=== PATIENT | male | born 1950 | race African-American/Black ===

== ENCOUNTER 2020-06-13 19:17 | Inpatient (IN) | payer MEDICARE, OTHER ==
[~2020-06-13] VITALS: Ht 189.2 cm; Wt 126.1 kg
[2020-06-13] MEDS ORDERED: NITROGLYCERIN 0.4 MG/TAB BOTTLE SL ONE (20:30)
[2020-06-13] MEDS ORDERED: FUROSEMIDE 40 MG/4 ML VIAL IV ONE (20:30)
[2020-06-13 21:02] LABS: BASOPHILS % (AUTO) 0.7 % (0.0-2.0); HEMATOCRIT 28 % (39-51); HEMOGLOBIN 8.7 g/dL (13.5-17.5); LYMPHOCYTES # (AUTO) 0.3 /CMM (0.8-4.8); LYMPHOCYTES % (AUTO) 7.7 % (20.0-44.0); MEAN CORPUSCULAR HGB CONC 31 g/dl (31.0-36.0); MEAN CORPUSCULAR VOLUME 73 fL (80-96); MONOCYTES # (AUTO) 0.4 /CMM (0.1-1.30); MONOCYTES % (AUTO) 8.9 % (2.0-12.0); NEUTROPHILS # (AUTO) 3.4 /CMM (1.8-8.9); NEUTROPHILS % (AUTO) 80.7 % (43.0-81.0); PLATELET COUNT (AUTO) 250 /CMM (150-450); RED BLOOD CELL COUNT(AUTO) 3.84 MIL/uL (4.5-6.0); WHITE BLOOD COUNT (AUTO) 4.2 K/uL (4.3-11.0)
[2020-06-13 21:34] LABS: LYMPHOCYTES % (MANUAL) 7 % (16-48); MONOCYTES % (MANUAL) 6 % (0-11.0); NEUTROPHILS % (MANUAL) 87 (42-76)
[2020-06-13 21:35] LABS: CARBON DIOXIDE 36 mmol/L (21-32); CHLORIDE 105 mmol/L (98-107); GLUCOSE 101 mg/dL (74-106); POTASSIUM 3.7 mmol/L (3.5-5.1); SODIUM SERUM 143 mmol/L (136-145); UREA NITROGEN, BLOOD 13 mg/dL (7-18)
[2020-06-13] MEDS ORDERED: FUROSEMIDE 40 MG/4 ML VIAL ONE (21:43)
[2020-06-13] MEDS ORDERED: NITROGLYCERIN 0.4 MG/TAB BOTTLE ONE (21:43)
[2020-06-13 21:48] LABS: ALANINE AMINOTRANSFERASE 11 U/L (12-78); ALBUMIN 3.2 g/dL (3.4-5.0); ALKALINE PHOSPHATASE 89 U/L (46-116); ASPARTATE AMINOTRANSFERASE 14 U/L (15-37); B-TYPE NATRIURETIC PEPTIDE 2031 PG/ML (0-125); BILIRUBIN,DIRECT 0.5 mg/dL (0.0-0.2); BILIRUBIN,TOTAL 0.9 mg/dL (0.2-1.0); TOTAL PROTEIN, SERUM 8.3 g/dL (6.4-8.2)
[2020-06-13] MEDS ORDERED: HYDROCODONE/APAP 5/325MG TABLET PO PRN (23:30)
[2020-06-13] MEDS ORDERED: ENOXAPARIN SODIUM 40 MG/0.4 ML DISP.SYRIN SQ SCH (23:30)
[2020-06-13] MEDS ORDERED: ACETAMINOPHEN 325 MG TABLET PO PRN (23:30)
[2020-06-13] MEDS ORDERED: ONDANSETRON HCL/PF 4 MG/2 ML VIAL IVP PRN (23:30)
[2020-06-13] MEDS ORDERED: Z GUARD REMEDY 2 OZ OINT TP PRN (23:30)
[2020-06-13] MEDS ORDERED: MAGNESIUM HYDROXIDE 30 ML UDC PO PRN (23:30)
[2020-06-13] MEDS ORDERED: MAG HYDROX/AL HYDROX/SIMETH 30 ML UDC PO PRN (23:30)
[2020-06-13] MEDS ORDERED: ZOLPIDEM TARTRATE 5 MG TABLET PO PRN (23:30)
[2020-06-13 23:47] LABS: BILIRUBIN,URINE NEGATIVE (NEGATIVE); COLOR,URINE YELLOW (YELLOW); LEUKOCYTE ESTERASE ,URINE NEGATIVE (NEGATIVE); NITRITE, URINE NEGATIVE (NEGATIVE); PROTEIN,URINE NEGATIVE (NEGATIVE); UGLUCOSE NEGATIVE (NEGATIVE); UROBILINOGEN,URINE 0.2 EU/dL (0.2)
[2020-06-13 23:50] VITALS: BP 153/94
[2020-06-14 03:32] LABS: BASOPHILS % (AUTO) 0.8 % (0.0-2.0); HEMATOCRIT 28 % (39-51); HEMOGLOBIN 8.7 g/dL (13.5-17.5); LYMPHOCYTES # (AUTO) 0.4 /CMM (0.8-4.8); LYMPHOCYTES % (AUTO) 11.2 % (20.0-44.0); MEAN CORPUSCULAR HGB CONC 31 g/dl (31.0-36.0); MEAN CORPUSCULAR VOLUME 73 fL (80-96); MONOCYTES # (AUTO) 0.3 /CMM (0.1-1.30); MONOCYTES % (AUTO) 8.5 % (2.0-12.0); NEUTROPHILS # (AUTO) 2.8 /CMM (1.8-8.9); NEUTROPHILS % (AUTO) 77.5 % (43.0-81.0); PLATELET COUNT (AUTO) 233 /CMM (150-450); RED BLOOD CELL COUNT(AUTO) 3.85 MIL/uL (4.5-6.0); WHITE BLOOD COUNT (AUTO) 3.7 K/uL (4.3-11.0)
[2020-06-14 03:43] LABS: CREATININE 1.1 mg/dL (0.6-1.3); MAGNESIUM 1.8 mg/dL (1.8-2.4); PHOSPHORUS 3.9 mg/dL (2.5-4.9)
[2020-06-14 04:00] VITALS: BP 162/103
[2020-06-14] MEDS ORDERED: FURO-144 PO (07:24)
[2020-06-14] MEDS ORDERED: APIX5TAB PO (07:24)
[2020-06-14] MEDS ORDERED: CARV12.52 PO (07:24)
[2020-06-14] MEDS ORDERED: HYDR-4077 PO (07:24)
[2020-06-14] MEDS ORDERED: HYDR-4209 PO (07:24)
[2020-06-14] MEDS ORDERED: BENA40TA8 PO (07:24)
[2020-06-14 08:00] VITALS: BP 150/90
[2020-06-14] MEDS: PANTOPRAZOLE 40 MG TABLET.DR PO SCH (08:31)
[2020-06-14] MEDS: NICOTINE PATCH (21MG) 21 MG PATCH.TD24 TD SCH (08:45)
[2020-06-14] MEDS ORDERED: HYDROCODONE/APAP 5/325MG TABLET PO PRN (09:00)
[2020-06-14] MEDS ORDERED: FUROSEMIDE 40 MG/4 ML VIAL IV SCH (09:00)
[2020-06-14] MEDS: IPRATROPIUM NEB FS 0.5 MG/2.5 ML AMPUL.NEB NEB SCH ×5 (09:30→23:45)
[2020-06-14] MEDS: ALBUTEROL HALF STRENGTH 1.25 MG/3 ML VIAL.NEB NEB SCH ×5 (09:30→23:45)
[2020-06-14 10:07] LABS: THYROID STIMULATING HORMONE 2.942 uIU/mL (0.358-3.74)
[2020-06-14] MEDS: POTASSIUM CHLORIDE 20 MEQ TAB.PRT.SR PO SCH ×3 (10:09→11:31)
[2020-06-14] MEDS: BENAZEPRIL HCL 20 MG TABLET PO SCH (10:09)
[2020-06-14] MEDS: APIXABAN 5 MG TABLET PO SCH ×2 (10:09→16:25)
[2020-06-14] MEDS: FUROSEMIDE 100 MG/10 ML VIAL IV SCH ×3 (10:10→16:23)
[2020-06-14] MEDS: CARVEDILOL 12.5 MG TABLET PO SCH ×2 (10:10→16:26)
[2020-06-14] MEDS: hydrALAZINE HCL 50 MG TABLET PO SCH ×3 (10:10→16:26)
[2020-06-14] MEDS: methylPREDNISolone SOD SUCC 40 MG/ML VIAL IV SCH (10:13)
[2020-06-14 10:25] LABS: ABG BASE EXCESS 4.9 mmol/L; ABG OXYGEN SATURATION 98.9 % (92.0-98.5); ABG PCO2 53.3 mmHg (35.0-45.0); ABG PO2 144.5 mmHg (75.0-100.0); AaDO2 50.4 mmHg; COHb 2.9 % (0.5-1.5); MetHb 0.2 % (0.0-1.5); O2Hb 95.8 % (94.0-97.0); SITE, ABG Right Radial; VENT MODE, BG 4L NC
[2020-06-14 16:00] VITALS: BP 150/110
[2020-06-14 20:49] VITALS: BP 134/84
[2020-06-15] MEDS: IPRATROPIUM NEB FS 0.5 MG/2.5 ML AMPUL.NEB NEB SCH ×6 (03:58→23:59)
[2020-06-15] MEDS: ALBUTEROL HALF STRENGTH 1.25 MG/3 ML VIAL.NEB NEB SCH ×6 (03:58→23:59)
[2020-06-15 07:30] LABS: BASOPHILS # (AUTO) 0.1 /CMM (0.0-0.2); BASOPHILS % (AUTO) 1.2 % (0.0-2.0); EOSINOPHILS % (AUTO) 0.4 % (0.0-6.0); HEMATOCRIT 29 % (39-51); LYMPHOCYTES # (AUTO) 0.4 /CMM (0.8-4.8); LYMPHOCYTES % (AUTO) 8.9 % (20.0-44.0); MEAN CORPUSCULAR HGB CONC 31 g/dl (31.0-36.0); MEAN CORPUSCULAR VOLUME 73 fL (80-96); MONOCYTES # (AUTO) 0.4 /CMM (0.1-1.30); MONOCYTES % (AUTO) 8.1 % (2.0-12.0); NEUTROPHILS # (AUTO) 4.1 /CMM (1.8-8.9); NEUTROPHILS % (AUTO) 81.4 % (43.0-81.0); PLATELET COUNT (AUTO) 223 /CMM (150-450); RED BLOOD CELL COUNT(AUTO) 3.97 MIL/uL (4.5-6.0)
[2020-06-15 07:51] LABS: ALANINE AMINOTRANSFERASE 11 U/L (12-78); ALKALINE PHOSPHATASE 82 U/L (46-116); ASPARTATE AMINOTRANSFERASE 13 U/L (15-37); BILIRUBIN,TOTAL 0.8 mg/dL (0.2-1.0); CALCIUM, SERUM 9.2 mg/dL (8.5-10.1); CARBON DIOXIDE 35 mmol/L (21-32); CHLORIDE 104 mmol/L (98-107); GLUCOSE 102 mg/dL (74-106); MAGNESIUM 2.1 mg/dL (1.8-2.4); SODIUM SERUM 142 mmol/L (136-145); TOTAL PROTEIN, SERUM 8.1 g/dL (6.4-8.2); UREA NITROGEN, BLOOD 14 mg/dL (7-18)
[2020-06-15 08:00] VITALS: BP 140/104
[2020-06-15 08:06] LABS: *SPE A/G RATIO 0.7 (0.7-1.7); *SPE ALBUMIN 3.2 g/dL (2.9-4.4); *SPE ALPHA-1-GLOBULIN 0.3 g/dL (0.0-0.4); *SPE ALPHA-2-GLOBULIN 0.5 g/dL (0.4-1.0); *SPE BETA GLOBULIN 1.2 g/dL (0.7-1.3); *SPE GLOBULIN, TOTAL 4.6 g/dL (2.2-3.9); *SPE M-SPIKE Not Observed g/dL (Not Observed); *SPEGAMMA GLOBULIN 2.6 g/dL (0.4-1.8)
[2020-06-15] MEDS: PANTOPRAZOLE 40 MG TABLET.DR PO SCH (08:14)
[2020-06-15] MEDS: FUROSEMIDE 100 MG/10 ML VIAL IV SCH ×3 (08:42→16:21)
[2020-06-15] MEDS: methylPREDNISolone SOD SUCC 40 MG/ML VIAL IV SCH (08:42)
[2020-06-15] MEDS: CARVEDILOL 12.5 MG TABLET PO SCH ×2 (08:44→17:43)
[2020-06-15] MEDS: hydrALAZINE HCL 50 MG TABLET PO SCH ×3 (08:44→17:41)
[2020-06-15] MEDS: BENAZEPRIL HCL 20 MG TABLET PO SCH (08:45)
[2020-06-15] MEDS: APIXABAN 5 MG TABLET PO SCH ×2 (08:46→17:44)
[2020-06-15] MEDS: NICOTINE PATCH (21MG) 21 MG PATCH.TD24 TD SCH (08:56)
[2020-06-15] MEDS ORDERED: SOD FERRIC GLUC 125 MG in IV NS 0.9% 100 ML IV SCH (14:00)
[2020-06-15] MEDS: IRON SUCROSE COMPLEX 200 MG in IV NS 0.9% 100 ML IV SCH (14:58)
[2020-06-15 16:00] VITALS: BP 146/90
[2020-06-15 20:00] VITALS: BP 130/76
[2020-06-16] MEDS: IPRATROPIUM NEB FS 0.5 MG/2.5 ML AMPUL.NEB NEB SCH ×6 (03:30→23:00)
[2020-06-16] MEDS: ALBUTEROL HALF STRENGTH 1.25 MG/3 ML VIAL.NEB NEB SCH ×6 (03:30→23:00)
[2020-06-16 06:48] LABS: BASOPHILS % (AUTO) 0.5 % (0.0-2.0); EOSINOPHILS % (AUTO) 0.4 % (0.0-6.0); HEMATOCRIT 26 % (39-51); HEMOGLOBIN 8.1 g/dL (13.5-17.5); LYMPHOCYTES # (AUTO) 0.4 /CMM (0.8-4.8); LYMPHOCYTES % (AUTO) 8.5 % (20.0-44.0); MEAN CORPUSCULAR HGB CONC 31 g/dl (31.0-36.0); MEAN CORPUSCULAR VOLUME 74 fL (80-96); MONOCYTES # (AUTO) 0.5 /CMM (0.1-1.30); MONOCYTES % (AUTO) 10.7 % (2.0-12.0); NEUTROPHILS # (AUTO) 3.9 /CMM (1.8-8.9); NEUTROPHILS % (AUTO) 79.9 % (43.0-81.0); PLATELET COUNT (AUTO) 213 /CMM (150-450); RED BLOOD CELL COUNT(AUTO) 3.57 MIL/uL (4.5-6.0); WHITE BLOOD COUNT (AUTO) 4.9 K/uL (4.3-11.0)
[2020-06-16 07:55] LABS: ALBUMIN 3.1 g/dL (3.4-5.0); BILIRUBIN,TOTAL 0.6 mg/dL (0.2-1.0); CALCIUM, SERUM 9.2 mg/dL (8.5-10.1); PHOSPHORUS 3.4 mg/dL (2.5-4.9); POTASSIUM 3.9 mmol/L (3.5-5.1); TOTAL PROTEIN, SERUM 7.9 g/dL (6.4-8.2)
[2020-06-16 08:00] VITALS: BP 128/84
[2020-06-16] MEDS: methylPREDNISolone SOD SUCC 40 MG/ML VIAL IV SCH (08:59)
[2020-06-16] MEDS: CARVEDILOL 12.5 MG TABLET PO SCH ×2 (09:00→16:39)
[2020-06-16] MEDS: hydrALAZINE HCL 50 MG TABLET PO SCH ×3 (09:00→16:39)
[2020-06-16] MEDS ORDERED: BUMETANIDE INJ 16 MG in IV NS 0.9% 16 ML IV ONE (09:00)
[2020-06-16] MEDS: NICOTINE PATCH (21MG) 21 MG PATCH.TD24 TD SCH (09:01)
[2020-06-16] MEDS: BENAZEPRIL HCL 20 MG TABLET PO SCH (09:01)
[2020-06-16] MEDS: APIXABAN 5 MG TABLET PO SCH ×2 (09:02→16:39)
[2020-06-16] MEDS: PANTOPRAZOLE 40 MG TABLET.DR PO SCH (09:36)
[2020-06-16 15:53] VITALS: BP 114/71
[2020-06-16 20:00] VITALS: BP 125/76
[2020-06-17] MEDS: ALBUTEROL HALF STRENGTH 1.25 MG/3 ML VIAL.NEB NEB SCH ×6 (02:53→23:46)
[2020-06-17] MEDS: IPRATROPIUM NEB FS 0.5 MG/2.5 ML AMPUL.NEB NEB SCH ×6 (02:53→23:46)
[2020-06-17 06:07] LABS: RED BLOOD CELL COUNT(AUTO) 3.59 MIL/uL (4.5-6.0); WHITE BLOOD COUNT (AUTO) 4.5 K/uL (4.3-11.0)
[2020-06-17 06:08] LABS: BASOPHILS % (AUTO) 0.3 % (0.0-2.0); EOSINOPHILS % (AUTO) 0.5 % (0.0-6.0); HEMATOCRIT 26 % (39-51); HEMOGLOBIN 8.2 g/dL (13.5-17.5); LYMPHOCYTES # (AUTO) 0.4 /CMM (0.8-4.8); LYMPHOCYTES % (AUTO) 9.4 % (20.0-44.0); MEAN CORPUSCULAR HGB CONC 31 g/dl (31.0-36.0); MEAN CORPUSCULAR VOLUME 73 fL (80-96); MONOCYTES # (AUTO) 0.5 /CMM (0.1-1.30); MONOCYTES % (AUTO) 11.7 % (2.0-12.0); NEUTROPHILS # (AUTO) 3.5 /CMM (1.8-8.9); NEUTROPHILS % (AUTO) 78.1 % (43.0-81.0); PLATELET COUNT (AUTO) 216 /CMM (150-450)
[2020-06-17 06:53] LABS: ALBUMIN 3.1 g/dL (3.4-5.0); BILIRUBIN,TOTAL 0.5 mg/dL (0.2-1.0); MAGNESIUM 1.8 mg/dL (1.8-2.4); PHOSPHORUS 3.1 mg/dL (2.5-4.9); POTASSIUM 3.4 mmol/L (3.5-5.1); TOTAL PROTEIN, SERUM 7.9 g/dL (6.4-8.2)
[2020-06-17 08:00] VITALS: BP 146/99
[2020-06-17] MEDS: CARVEDILOL 12.5 MG TABLET PO SCH ×2 (09:11→17:12)
[2020-06-17] MEDS: PANTOPRAZOLE 40 MG TABLET.DR PO SCH (09:11)
[2020-06-17] MEDS: methylPREDNISolone SOD SUCC 40 MG/ML VIAL IV SCH (09:11)
[2020-06-17] MEDS: NICOTINE PATCH (21MG) 21 MG PATCH.TD24 TD SCH (09:12)
[2020-06-17] MEDS: BENAZEPRIL HCL 20 MG TABLET PO SCH (09:12)
[2020-06-17] MEDS: hydrALAZINE HCL 50 MG TABLET PO SCH ×3 (09:12→17:12)
[2020-06-17] MEDS: APIXABAN 5 MG TABLET PO SCH ×2 (09:13→17:14)
[2020-06-17] MEDS ORDERED: POTASSIUM CHLORIDE 20 MEQ TAB.PRT.SR PO SCH (11:30)
[2020-06-17] MEDS: IRON SUCROSE COMPLEX 200 MG in IV NS 0.9% 100 ML IV SCH (13:49)
[2020-06-17 20:00] VITALS: BP 139/77
[2020-06-18] MEDS: IPRATROPIUM NEB FS 0.5 MG/2.5 ML AMPUL.NEB NEB SCH ×6 (03:31→23:58)
[2020-06-18] MEDS: ALBUTEROL HALF STRENGTH 1.25 MG/3 ML VIAL.NEB NEB SCH ×6 (03:31→23:58)
[2020-06-18 06:59] LABS: BASOPHILS % (AUTO) 0.1 % (0.0-2.0); EOSINOPHILS % (AUTO) 0.2 % (0.0-6.0); HEMATOCRIT 28 % (39-51); HEMOGLOBIN 8.7 g/dL (13.5-17.5); LYMPHOCYTES # (AUTO) 0.5 /CMM (0.8-4.8); LYMPHOCYTES % (AUTO) 11.1 % (20.0-44.0); MEAN CORPUSCULAR HGB CONC 31 g/dl (31.0-36.0); MEAN CORPUSCULAR VOLUME 74 fL (80-96); MONOCYTES # (AUTO) 0.5 /CMM (0.1-1.30); MONOCYTES % (AUTO) 10.8 % (2.0-12.0); NEUTROPHILS # (AUTO) 3.5 /CMM (1.8-8.9); NEUTROPHILS % (AUTO) 77.8 % (43.0-81.0); PLATELET COUNT (AUTO) 227 /CMM (150-450); RED BLOOD CELL COUNT(AUTO) 3.84 MIL/uL (4.5-6.0); WHITE BLOOD COUNT (AUTO) 4.5 K/uL (4.3-11.0)
[2020-06-18] MEDS: PANTOPRAZOLE 40 MG TABLET.DR PO SCH (07:51)
[2020-06-18 08:00] VITALS: BP 130/77
[2020-06-18 08:00] LABS: ALBUMIN 3.1 g/dL (3.4-5.0); BILIRUBIN,TOTAL 0.6 mg/dL (0.2-1.0); CALCIUM, SERUM 9.1 mg/dL (8.5-10.1); CREATININE 0.8 mg/dL (0.6-1.3); MAGNESIUM 1.9 mg/dL (1.8-2.4); PHOSPHORUS 2.6 mg/dL (2.5-4.9); POTASSIUM 4.1 mmol/L (3.5-5.1); TOTAL PROTEIN, SERUM 8.1 g/dL (6.4-8.2)
[2020-06-18] MEDS: NICOTINE PATCH (21MG) 21 MG PATCH.TD24 TD SCH (08:50)
[2020-06-18] MEDS: BENAZEPRIL HCL 20 MG TABLET PO SCH (08:50)
[2020-06-18] MEDS: methylPREDNISolone SOD SUCC 40 MG/ML VIAL IV SCH (08:50)
[2020-06-18] MEDS: hydrALAZINE HCL 50 MG TABLET PO SCH ×3 (08:51→17:20)
[2020-06-18] MEDS: CARVEDILOL 12.5 MG TABLET PO SCH ×2 (08:51→17:20)
[2020-06-18] MEDS: APIXABAN 5 MG TABLET PO SCH ×2 (08:52→17:22)
[2020-06-18 16:00] VITALS: BP 160/97
[2020-06-18 20:00] VITALS: BP 131/74
[2020-06-19] MEDS: ALBUTEROL HALF STRENGTH 1.25 MG/3 ML VIAL.NEB NEB SCH ×5 (03:34→20:36)
[2020-06-19] MEDS: IPRATROPIUM NEB FS 0.5 MG/2.5 ML AMPUL.NEB NEB SCH ×5 (03:34→20:36)
[2020-06-19 06:43] LABS: BASOPHILS % (AUTO) 0.3 % (0.0-2.0); EOSINOPHILS % (AUTO) 0.6 % (0.0-6.0); HEMATOCRIT 28 % (39-51); HEMOGLOBIN 8.5 g/dL (13.5-17.5); LYMPHOCYTES # (AUTO) 0.3 /CMM (0.8-4.8); LYMPHOCYTES % (AUTO) 7.9 % (20.0-44.0); MEAN CORPUSCULAR HGB CONC 31 g/dl (31.0-36.0); MEAN CORPUSCULAR VOLUME 74 fL (80-96); MONOCYTES # (AUTO) 0.3 /CMM (0.1-1.30); MONOCYTES % (AUTO) 8.4 % (2.0-12.0); NEUTROPHILS # (AUTO) 3.4 /CMM (1.8-8.9); NEUTROPHILS % (AUTO) 82.8 % (43.0-81.0); PLATELET COUNT (AUTO) 212 /CMM (150-450); RED BLOOD CELL COUNT(AUTO) 3.72 MIL/uL (4.5-6.0); WHITE BLOOD COUNT (AUTO) 4.1 K/uL (4.3-11.0)
[2020-06-19 07:10] LABS: CREATININE 0.8 mg/dL (0.6-1.3); POTASSIUM 3.9 mmol/L (3.5-5.1)
[2020-06-19 08:00] VITALS: BP 144/61
[2020-06-19] MEDS: PANTOPRAZOLE 40 MG TABLET.DR PO SCH (09:37)
[2020-06-19] MEDS: hydrALAZINE HCL 50 MG TABLET PO SCH ×3 (09:39→16:23)
[2020-06-19] MEDS: BENAZEPRIL HCL 20 MG TABLET PO SCH (09:40)
[2020-06-19] MEDS: CARVEDILOL 12.5 MG TABLET PO SCH ×2 (09:40→16:30)
[2020-06-19] MEDS: APIXABAN 5 MG TABLET PO SCH ×2 (09:41→16:29)
[2020-06-19] MEDS: NICOTINE PATCH (21MG) 21 MG PATCH.TD24 TD SCH (09:41)
[2020-06-19] MEDS: IRON SUCROSE COMPLEX 200 MG in IV NS 0.9% 100 ML IV SCH (15:12)
[2020-06-19 16:00] VITALS: BP 146/72
[2020-06-19 20:00] VITALS: BP 147/90
[2020-06-20] MEDS: ALBUTEROL HALF STRENGTH 1.25 MG/3 ML VIAL.NEB NEB SCH ×4 (00:35→12:36)
[2020-06-20] MEDS: IPRATROPIUM NEB FS 0.5 MG/2.5 ML AMPUL.NEB NEB SCH ×4 (00:35→12:36)
[2020-06-20 06:28] LABS: BASOPHILS % (AUTO) 0.2 % (0.0-2.0); HEMATOCRIT 28 % (39-51); HEMOGLOBIN 8.6 g/dL (13.5-17.5); LYMPHOCYTES # (AUTO) 0.4 /CMM (0.8-4.8); LYMPHOCYTES % (AUTO) 12.1 % (20.0-44.0); MEAN CORPUSCULAR HGB CONC 31 g/dl (31.0-36.0); MEAN CORPUSCULAR VOLUME 75 fL (80-96); MONOCYTES # (AUTO) 0.4 /CMM (0.1-1.30); MONOCYTES % (AUTO) 12.2 % (2.0-12.0); NEUTROPHILS # (AUTO) 2.5 /CMM (1.8-8.9); NEUTROPHILS % (AUTO) 72.5 % (43.0-81.0); PLATELET COUNT (AUTO) 209 /CMM (150-450); RED BLOOD CELL COUNT(AUTO) 3.76 MIL/uL (4.5-6.0); WHITE BLOOD COUNT (AUTO) 3.4 K/uL (4.3-11.0)
[2020-06-20 06:51] LABS: ALBUMIN 3.1 g/dL (3.4-5.0); BILIRUBIN,TOTAL 0.6 mg/dL (0.2-1.0); CALCIUM, SERUM 9.2 mg/dL (8.5-10.1); CREATININE 0.7 mg/dL (0.6-1.3); PHOSPHORUS 3.7 mg/dL (2.5-4.9); POTASSIUM 3.8 mmol/L (3.5-5.1); TOTAL PROTEIN, SERUM 7.7 g/dL (6.4-8.2)
[2020-06-20 08:00] VITALS: BP 121/69
[2020-06-20] MEDS: PANTOPRAZOLE 40 MG TABLET.DR PO SCH (08:35)
[2020-06-20] MEDS: BENAZEPRIL HCL 20 MG TABLET PO SCH (08:36)
[2020-06-20] MEDS: hydrALAZINE HCL 50 MG TABLET PO SCH ×2 (08:37→13:54)
[2020-06-20] MEDS: CARVEDILOL 12.5 MG TABLET PO SCH (08:37)
[2020-06-20] MEDS: APIXABAN 5 MG TABLET PO SCH (08:39)
[2020-06-20] MEDS: NICOTINE PATCH (21MG) 21 MG PATCH.TD24 TD SCH (08:41)
[2020-06-20] MEDS ORDERED: IPRA0.2S9 NEB (10:05)
[2020-06-20] MEDS ORDERED: ALBU1.25 NEB (10:05)
[2020-06-20] MEDS ORDERED: NICO-762 TD (10:05)
[2020-06-20] MEDS ORDERED: PANT40TA2 PO (10:05)
[2020-06-20 13:54] VITALS: BP 113/67
== END 2020-06-20 15:10 | DRG 166 ==
LOC: ER 19:20 → TELE 23:15 → MED 06-14 14:03
PROVIDERS: ADMIT Student in an Organized Health Care Education/Training Program; ATTEND Nurse Practitioner Acute Care
PROC: 0JBN0ZZ Excision of Right Lower Leg Subcutaneous Tissue and Fascia, Open Approach (ICD-10-PCS; principal; 2020-06-14)
DX: J96.21 Acute and chronic respiratory failure with hypoxia (principal); I50.33 Acute on chronic diastolic (congestive) heart failure; E44.1 Mild protein-calorie malnutrition; L97.919 Non-pressure chronic ulcer of unspecified part of right lower leg with unspecified severity; I87.311 Chronic venous hypertension (idiopathic) with ulcer of right lower extremity; J44.1 Chronic obstructive pulmonary disease with (acute) exacerbation; E87.3 Alkalosis; I11.0 Hypertensive heart disease with heart failure; J96.22 Acute and chronic respiratory failure with hypercapnia; K21.9 Gastro-esophageal reflux disease without esophagitis; D64.9 Anemia, unspecified; G47.33 Obstructive sleep apnea (adult) (pediatric); I87.2 Venous insufficiency (chronic) (peripheral); I48.91 Unspecified atrial fibrillation; Z20.822 Contact with and (suspected) exposure to COVID-19; Z72.0 Tobacco use; W34.00XS Accidental discharge from unspecified firearms or gun, sequela; Z91.19 Patient's noncompliance with other medical treatment and regimen; I27.81 Cor pulmonale (chronic); Z68.35 Body mass index [BMI] 35.0-35.9, adult; E66.9 Obesity, unspecified; Z79.01 Long term (current) use of anticoagulants; D50.9 Iron deficiency anemia, unspecified; D70.9 Neutropenia, unspecified; N50.89 Other specified disorders of the male genital organs; L60.3 Nail dystrophy; I27.20 Pulmonary hypertension, unspecified
CPT/HCPCS: 36415; 36600; 71045-TC; 80048-TC; 80053-TC; 80061-TC; 80076-TC; 82728-TC; 82803-TC; 83540-TC; 83605-TC; 83735-TC; 83880; 84100-TC; 84155; 84165; 84439-TC; 84443-TC; 84484-TC; 85025-TC; 85730-TC; 86850-TC; 87040-TC; 87081-TC; 93307-TC; 93970-TC; 94799-TC; 97116-TC; 97530-TC; A6253; C9803; G0378; J1650; J1756; J1940; J2916; J2920; J3490; J7030

== ENCOUNTER 2020-07-18 18:22 | Inpatient (IN) | payer MEDICARE, OTHER ==
[~2020-07-18] VITALS: Ht 188 cm; Wt 114.3 kg
[~2020-07-18 18:22] MED LIST: ALBU1.25 NEB; APIX5TAB PO; BENA40TA8 PO; CARV12.52 PO; FURO-144 PO; HYDR-4077 PO; HYDR-4209 PO; IPRA0.2S9 NEB; NICO-762 TD; PANT40TA2 PO
--- NOTE | 2020-07-18 18:45 | NUR ---
[facility] TESTICULAR SWELLING AND PAIN SINCE 07/13. RATES PAIN /10. RESPIRATION REGULAR AND UNLABORED. DENIES SOB. WILL CONTINUE TO MONITOR THE PATIENT.
[2020-07-18] MEDS ORDERED: LATA2.5D2 EACHEYE (18:47)
[2020-07-18] MEDS ORDERED: MAGN400O6 PO (18:47)
[2020-07-18] MEDS ORDERED: ONDA4TAB5 PO (18:47)
[2020-07-18] MEDS ORDERED: MULT-447 PO (18:47)
[2020-07-18] MEDS ORDERED: POLY15DR40 EACHEYE (18:47)
[2020-07-18] MEDS ORDERED: PANT40TA2 PO (18:47)
[2020-07-18] MEDS ORDERED: METO5TAB7 PO (18:47)
[2020-07-18] MEDS ORDERED: CRAN3875 PO (18:47)
[2020-07-18] MEDS ORDERED: CRAN425C6 PO (18:47)
[2020-07-18] MEDS ORDERED: ACET-2605 PO ×2 (18:47)
[2020-07-18] MEDS ORDERED: DOCU-270 PO (18:47)
[2020-07-18] MEDS ORDERED: ACET-868 PO (18:47)
[2020-07-18] MEDS ORDERED: CALC1TAB30 PO (18:47)
[2020-07-18] MEDS ORDERED: NICO-676 TD (18:47)
[2020-07-18] MEDS ORDERED: ASCO-352 PO (18:47)
[2020-07-18] MEDS ORDERED: IPRA4AER IH (18:47)
[2020-07-18] MEDS ORDERED: ZINC50TA65 PO (18:47)
[2020-07-18] MEDS ORDERED: FUROSEMIDE 40 MG/4 ML VIAL IV ONE (19:00)
[2020-07-18 19:21] LABS: CARBON DIOXIDE 36 mmol/L (21-32); CHLORIDE 102 mmol/L (98-107); CREATININE 1.2 mg/dL (0.6-1.3); GLUCOSE 111 mg/dL (74-106); POTASSIUM 3.9 mmol/L (3.5-5.1); SODIUM SERUM 141 mmol/L (136-145); UREA NITROGEN, BLOOD 18 mg/dL (7-18)
--- NOTE | 2020-07-18 19:23 | NUR ---
XRAY AT BEDSIDE.
[2020-07-18] MEDS ORDERED: FUROSEMIDE 40 MG/4 ML VIAL ONE (19:27)
[2020-07-18 19:33] LABS: NT-PRO BNP 1408 pg/mL (0-125)
[2020-07-18 19:46] LABS: BASOPHILS % (AUTO) 0.9 % (0.0-2.0); EOSINOPHILS % (AUTO) 3.6 % (0.0-6.0); HEMATOCRIT 27 % (39-51); HEMOGLOBIN 8.4 g/dL (13.5-17.5); LYMPHOCYTES # (AUTO) 0.3 /CMM (0.8-4.8); LYMPHOCYTES % (AUTO) 7.6 % (20.0-44.0); MEAN CORPUSCULAR HGB CONC 31 g/dl (31.0-36.0); MEAN CORPUSCULAR VOLUME 77 fL (80-96); MONOCYTES # (AUTO) 0.3 /CMM (0.1-1.30); MONOCYTES % (AUTO) 8.8 % (2.0-12.0); NEUTROPHILS # (AUTO) 2.9 /CMM (1.8-8.9); NEUTROPHILS % (AUTO) 79.1 % (43.0-81.0); PLATELET COUNT (AUTO) 243 /CMM (150-450); WHITE BLOOD COUNT (AUTO) 3.7 K/uL (4.3-11.0)
[2020-07-18 20:07] LABS: EOSINOPHILS % (MANUAL) 2 % (0-4); LYMPHOCYTES % (MANUAL) 10 % (16-48); MONOCYTES % (MANUAL) 7 % (0-11.0); NEUTROPHILS % (MANUAL) 81 (42-76)
--- NOTE | 2020-07-18 20:23 | NUR ---
COVID TEST COLLECTED AND SENT TO THE LAB.
--- NOTE | 2020-07-18 20:52 | NUR ---
REPORT GIVEN TO MOHAN YIP FOR [place].
[2020-07-18 21:00] VITALS: BP 134/86
[2020-07-18] MEDS ORDERED: MAG HYDROX/AL HYDROX/SIMETH 30 ML UDC PO PRN (21:00)
[2020-07-18] MEDS ORDERED: ONDANSETRON HCL/PF 4 MG/2 ML VIAL IVP PRN (21:00)
[2020-07-18] MEDS ORDERED: ACETAMINOPHEN 325 MG TABLET PO PRN ×2 (21:00)
[2020-07-18] MEDS ORDERED: HOME MED MISCELLANEOUS XX SCH (21:00)
[2020-07-18] MEDS ORDERED: Z GUARD REMEDY 2 OZ OINT TP PRN (21:00)
[2020-07-18] MEDS ORDERED: MAGNESIUM HYDROXIDE 30 ML UDC PO PRN ×2 (21:00)
[2020-07-18] MEDS ORDERED: HYDROCODONE/APAP 5/325MG TABLET PO PRN (21:00)
[2020-07-18] MEDS ORDERED: TEMAZEPAM 15 MG CAPSULE PO PRN (21:00)
[2020-07-18] MEDS ORDERED: ALBUTEROL FS 2.5 MG/3 ML VIAL.NEB NEB PRN (21:00)
--- NOTE | 2020-07-18 21:00 | NUR ---
ADMIT NOTE RECEIVED PATIENT FROM ER TO ROOM 103 VIA GURNEY. ABLE TO AMBULATE TO BED WITHOUT DIFFICULTY. PATIENT IS ALERT AND ORIENTED X3, ABLE TO MAKE NEEDS KNOWN. ON O2 2L VIA NASAL CANNULA, O2 SAT 100%. NO SIGNS OF RESPIRATORY DISTRESS. COMPLAINED OF 7/10 PAIN ON SCROTUM, PATIENT REQUESTING FOR PAIN MEDICATION. WILL ADMINISTER PRN MEDS. SKIN ASSESSMENT DONE, NOTED WITH BILATERAL LOWER EXTREMITY ULCERS. IV ACCESS ON LEFT AC #18, PATENT AND INTACT. ORIENTED PATIENT TO ROOM AND CALL LIGHT. BED LOCKED AND IN LOWEST POSITION. CALL LIGHT WITHIN REACH. ALL NEEDS ANTICIPATED.
--- NOTE | 2020-07-18 21:06 | NUR ---
PT WAS TRANSFERRED TO 103 UNDER ACLS
[2020-07-18] MEDS: DOCUSATE SODIUM 100 MG CAPSULE PO SCH (22:00)
[2020-07-18] MEDS: LATANOPROST EYE DROP 0.005% 2.5 ML BOTTLE EACHEYE SCH (22:00)
[2020-07-18] MEDS: FUROSEMIDE 40 MG/4 ML VIAL IV SCH (22:24)
[2020-07-19] VITALS: BP 122/58
[2020-07-19 04:00] VITALS: BP 105/65
[2020-07-19 05:53] LABS: BASOPHILS % (AUTO) 0.6 % (0.0-2.0); EOSINOPHILS % (AUTO) 3.9 % (0.0-6.0); HEMATOCRIT 27 % (39-51); HEMOGLOBIN 8.5 g/dL (13.5-17.5); LYMPHOCYTES # (AUTO) 0.3 /CMM (0.8-4.8); LYMPHOCYTES % (AUTO) 8.4 % (20.0-44.0); MEAN CORPUSCULAR HGB CONC 31 g/dl (31.0-36.0); MEAN CORPUSCULAR VOLUME 77 fL (80-96); MONOCYTES # (AUTO) 0.4 /CMM (0.1-1.30); MONOCYTES % (AUTO) 11.3 % (2.0-12.0); NEUTROPHILS # (AUTO) 2.9 /CMM (1.8-8.9); NEUTROPHILS % (AUTO) 75.8 % (43.0-81.0); PLATELET COUNT (AUTO) 256 /CMM (150-450); RED BLOOD CELL COUNT(AUTO) 3.51 MIL/uL (4.5-6.0); WHITE BLOOD COUNT (AUTO) 3.8 K/uL (4.3-11.0)
[2020-07-19 06:26] LABS: BILIRUBIN,URINE NEGATIVE (NEGATIVE); COLOR,URINE YELLOW (YELLOW); LEUKOCYTE ESTERASE ,URINE NEGATIVE (NEGATIVE); NITRITE, URINE NEGATIVE (NEGATIVE); PH,URINE 5.5 (5.0-8.0); PROTEIN,URINE NEGATIVE (NEGATIVE); UGLUCOSE NEGATIVE (NEGATIVE); UROBILINOGEN,URINE 0.2 EU/dL (0.2)
--- NOTE | 2020-07-19 06:45 | NUR ---
RN NOTE PATIENT IS ALERT AND ORIENTED X3. ON O2 2L VIA NASAL CANNULA, O2 SAT 96%. NO SIGNS OF RESPIRATORY DISTRESS. IV ACCESS ON LEFT AC #18, PATENT AND INTACT. ALL NEEDS ATTENDED PROMPTLY. BED LOCKED AND IN LOWEST POSITION. CALL LIGHT WITHIN REACH. WILL ENDORSE TO AM SHIFT.
[2020-07-19 06:52] LABS: CALCIUM, SERUM 8.6 mg/dL (8.5-10.1); CREATININE 1.1 mg/dL (0.6-1.3); PHOSPHORUS 4.2 mg/dL (2.5-4.9); POTASSIUM 3.8 mmol/L (3.5-5.1)
--- NOTE | 2020-07-19 07:50 | NUR ---
MS/RN OPENING NOTES RECEIVED PATIENT ALERT AND ORIENTED X 4. PATIENT IN ON ROOM AIR. PATIENT IN NO APPARENT RESPIRATORY DISTRESS NOTED. NO COMPLAINED OF PAIN AT THIS TIME. WILL CONTINUE TO MONITOR.
[2020-07-19] MEDS: PANTOPRAZOLE 40 MG TABLET.DR PO SCH (07:57)
[2020-07-19 08:00] VITALS: BP 120/68
[2020-07-19] MEDS: FUROSEMIDE 40 MG/4 ML VIAL IV SCH (08:35)
[2020-07-19] MEDS: ASCORBIC ACID 500 MG TABLET PO SCH (08:36)
[2020-07-19] MEDS: NICOTINE PATCH (14MG) 14 MG PATCH.TD24 TD SCH (08:36)
[2020-07-19] MEDS: CALCIUM CARB 250MG /VITAMIN D 1 UDTAB PO SCH (08:36)
[2020-07-19] MEDS: ZINC SULFATE 220 MG CAPSULE PO SCH (08:36)
[2020-07-19] MEDS: METOLAZONE 2.5 MG TABLET PO SCH ×2 (08:37→17:29)
[2020-07-19] MEDS: BENAZEPRIL HCL 10 MG TABLET PO SCH (08:37)
[2020-07-19] MEDS: hydrALAZINE HCL 50 MG TABLET PO SCH ×3 (08:37→17:30)
[2020-07-19] MEDS: MULTIVITAMINS,THERAGRAN 1 UDTAB TABLET PO SCH (08:38)
[2020-07-19] MEDS: CARVEDILOL 12.5 MG TABLET PO SCH (08:38)
[2020-07-19] MEDS: APIXABAN 5 MG TABLET PO SCH ×2 (09:30→17:33)
[2020-07-19] MEDS: POLYVINYL ALCOHOL 15 ML BOTTLE OP SCH ×3 (09:55→17:54)
[2020-07-19] MEDS: ALBUTEROL FS 2.5 MG/3 ML VIAL.NEB NEB SCH ×3 (11:00→20:15)
[2020-07-19 11:38] LABS: IRON, SERUM 23 ug/dl (50-175); TOTAL IRON BINDING CAPACITY 386 ug/dl (250-450)
[2020-07-19 11:52] LABS: FERRITIN 28 ng/mL (8-388)
[2020-07-19 12:00] VITALS: BP 129/92
[2020-07-19] MEDS ORDERED: BUMETANIDE INJ 16 MG in IV NS 0.9% 16 ML IV ONE (12:00)
[2020-07-19] MEDS: POTASSIUM CHLORIDE 20 MEQ TAB.PRT.SR PO SCH ×3 (12:06→15:19)
[2020-07-19 14:15] LABS: ABG BASE EXCESS 16.7 mmol/L; ABG OXYGEN SATURATION 89.1 % (92.0-98.5); ABG PCO2 61.9 mmHg (35.0-45.0); ABG PH 7.458 (7.350-7.450); ABG PO2 55.4 mmHg (75.0-100.0); AaDO2 20.2 mmHg; COHb 1.4 % (0.5-1.5); MetHb 0.2 % (0.0-1.5); O2Hb 87.7 % (94.0-97.0); SITE, ABG Right Radial; VENT MODE, BG room air
--- NOTE | 2020-07-19 14:28 | NUR ---
pt. is awake and alert placed into oxygen @ 2 lpm o2 flow via nasal cannula due to 88% spo2 and 55 PaO2. rn notified on changes made. Addendum: 07/19/20 at 1429 by KARLIE MCFADDEN RT Amended: Links added.
--- NOTE | 2020-07-19 14:37 | NUR ---
TELE/RN NOTES DR. JEAN WAS AWARE WITH ABG RESULT AND ORDER 0.5L OXYGEN NOTED AND CARRIED OUT.
--- NOTE | 2020-07-19 14:53 | NUR ---
TITRATE DOWN THE O2 FLOW FROM 2 LPM TO 0.[address] JEAN. Addendum: 07/19/20 at 1454 by KARLIE MCFADDEN RT Amended: Links added.
[2020-07-19 16:00] VITALS: BP 145/91
--- NOTE | 2020-07-19 18:48 | NUR ---
MS/RN CLOSING NOTE PATIENT IS ON BED. PATIENT ON T-PIECE 8L OXYGEN TOLERATING WELL. IV ACCESS AT RIGHT FEMORAL TLC WITH IV FLUID OF NS 1L AT 50 ML/HR ON AND INFUSING WELL. SEEN AND EXAMINED BY MD WITH ORDERS MADE AND CARRIED OUT. ALL DUE MEDICATIONS WAS GIVEN. TRACHEOSTOMY SITE AND GTUBE SITE CLEAN AND DRY. SAFETY PRECAUTIONS IMPLEMENTED, TOLL TEST DESK WORKER RAILS UP X2, CALL LIGHT WITHIN REACH. WILL ENDORSE CARE TO MAMMALOGIST FOR [place]. Addendum: 07/19/20 at 1851 by MILLER MIKE RN ERROR WRONG PATIENT
--- NOTE | 2020-07-19 18:52 | NUR ---
TELE/ RN CLOSING NOTE PATIENT IS ALERT AND ORIENTED X3. ON 0.5L OXYGEN VIA NASAL CANNULA, O2 SAT 96%. NO SIGNS OF RESPIRATORY DISTRESS. IV ACCESS ON LEFT AC #18, PATENT AND INTACT. ALL NEEDS ATTENDED PROMPTLY. BED LOCKED AND IN LOWEST POSITION. WOUND CARE WAS DONE. SEEN AND EXAMINED BY MD WITH ORDERS MADE AND CARRIED OUT ALL DUE MEDICATIONS WAS GIVEN. CALL LIGHT WITHIN REACH. WILL ENDORSE TO SPECIAL ORDER JEWELER FOR [place].
--- NOTE | 2020-07-19 19:59 | NUR ---
RN NOTE PATIENT IS ALERT AND ORIENTED X3. ON 0.5L OXYGEN VIA NASAL CANNULA, NO SIGNS OF RESPIRATORY DISTRESS. IV ACCESS ON RIGHT AC #18, PATENT AND INTACT. BED LOCKED AND IN LOWEST POSITION. CALL LIGHT WITHIN REACH. ALL NEEDS ANTICIPATED.
[2020-07-19 20:00] VITALS: BP 111/64
--- NOTE | 2020-07-19 20:28 | NUR ---
PATIENT COMPLAINED OF SEVERE PAIN ON SCROTUM AND BILATERAL LOWER EXTREMITIES AND REQUESTING FOR NORCO. MARIANN REDDY MADE AWARE WITH NEW ORDERS NOTED AND CARRIED OUT.
[2020-07-19] MEDS: LATANOPROST EYE DROP 0.005% 2.5 ML BOTTLE EACHEYE SCH (21:10)
[2020-07-19] MEDS: HYDROCODONE/APAP 5/325MG TABLET PO PRN (21:10)
[2020-07-19] MEDS: DOCUSATE SODIUM 100 MG CAPSULE PO SCH (22:00)
[2020-07-20] VITALS: BP 118/61
[2020-07-20] MEDS: ALBUTEROL FS 2.5 MG/3 ML VIAL.NEB NEB SCH ×4 (02:16→20:16)
[2020-07-20 04:00] VITALS: BP 135/77
[2020-07-20 05:59] LABS: BASOPHILS % (AUTO) 0.8 % (0.0-2.0); EOSINOPHILS % (AUTO) 3.6 % (0.0-6.0); HEMATOCRIT 27 % (39-51); HEMOGLOBIN 8.8 g/dL (13.5-17.5); LYMPHOCYTES # (AUTO) 0.4 /CMM (0.8-4.8); LYMPHOCYTES % (AUTO) 10.5 % (20.0-44.0); MEAN CORPUSCULAR HGB CONC 32 g/dl (31.0-36.0); MEAN CORPUSCULAR VOLUME 76 fL (80-96); MONOCYTES # (AUTO) 0.4 /CMM (0.1-1.30); MONOCYTES % (AUTO) 9.3 % (2.0-12.0); NEUTROPHILS % (AUTO) 75.8 % (43.0-81.0); PLATELET COUNT (AUTO) 264 /CMM (150-450)
[2020-07-20 06:04] LABS: CALCIUM, SERUM 9.4 mg/dL (8.5-10.1); CREATININE 1.3 mg/dL (0.6-1.3); MAGNESIUM 1.7 mg/dL (1.8-2.4); PHOSPHORUS 3.8 mg/dL (2.5-4.9); POTASSIUM 3.7 mmol/L (3.5-5.1)
--- NOTE | 2020-07-20 06:58 | NUR ---
RECEIVED CALL FROM LAB, SPOKE TO ARASH WITH [facility]ICAL [facility] CARBON DIOXIDE 41. NOTIFIED MARIANN REDDY WITH NO NEW ORDERS NOTED. WILL ENDORSE TO AM SHIFT.
--- NOTE | 2020-07-20 06:59 | NUR ---
RN NOTE PATIENT IS ALERT AND ORIENTED X3. ON 0.5L OXYGEN VIA NASAL CANNULA, NO SHORTNESS OF BREATH NOTED. IV ACCESS ON RIGHT AC #18, PATENT AND INTACT. ALL DUE MEDS GIVEN ORDERED. ALL NEEDS ATTENDED PROMPTLY. BED LOCKED AND IN LOWEST POSITION. CALL LIGHT WITHIN REACH. WILL ENDORSE TO AM SHIFT. Addendum: 07/20/20 at 0724 by MOHAN LOREDO RN PATIENT REFUSING OXYGEN AT THIS TIME. OFFERED X3. RISKS AND BENEFITS EXPLAINED. STILL STRONGLY REFUSED. NO SIGNS OF ANY RESPIRATORY DISTRESS. ONCOMING NURSE AWARE.
--- NOTE | 2020-07-20 07:20 | NUR ---
RN OPENING NOTES RECEIVED PT SITTING IN BED A/O X4. REFUSED O2 OF 0.5L DESPITE EDUCATION X3. NO SOB OR ANY RESPIRATORY DISTRESS. IV ACCESS ON RAC #20 INTACT AND PATENT. AMBULATORY. LEG WOUNDS NOTED, FOR WOUND CONSULT. SAFETY MEASURES IN PLACE. CALL LIGHT WITHIN REACH. BED LOCKED AND IN LOWEST POSITION WITH SIDE RAILS UP X3. WILL CONTINUE TO MONITOR.
[2020-07-20 08:00] VITALS: BP 119/71
[2020-07-20] MEDS: PANTOPRAZOLE 40 MG TABLET.DR PO SCH (09:44)
[2020-07-20] MEDS: hydrALAZINE HCL 50 MG TABLET PO SCH ×3 (09:48→17:59)
[2020-07-20] MEDS: CARVEDILOL 12.5 MG TABLET PO SCH (09:49)
[2020-07-20] MEDS: APIXABAN 5 MG TABLET PO SCH ×2 (09:50→18:01)
--- NOTE | 2020-07-20 09:51 | NUR ---
WOUND CARE CONSULT: PT SLEEPING AT THIS TIME. LOWER LEG DRESSINGS NOTED TO BE DRY AND INTACT. ADMISSION PHOTOS INDICATE LOWER LEG LESIONS/WOUND, PRESENT ON ADMISSION. DR MENDEZ NOTIFIED OF DPM CONSULT REQUEST. IN AGREEMENT WITH PLAN OF CARE.
[2020-07-20] MEDS: BENAZEPRIL HCL 10 MG TABLET PO SCH (09:53)
[2020-07-20] MEDS: ASCORBIC ACID 500 MG TABLET PO SCH (09:54)
[2020-07-20] MEDS: CALCIUM CARB 250MG /VITAMIN D 1 UDTAB PO SCH (09:54)
[2020-07-20] MEDS: METOLAZONE 2.5 MG TABLET PO SCH ×2 (09:55→17:59)
[2020-07-20] MEDS: ZINC SULFATE 220 MG CAPSULE PO SCH (09:56)
[2020-07-20] MEDS: MULTIVITAMINS,THERAGRAN 1 UDTAB TABLET PO SCH (09:56)
[2020-07-20] MEDS: NICOTINE PATCH (14MG) 14 MG PATCH.TD24 TD SCH (09:57)
[2020-07-20] MEDS: POLYVINYL ALCOHOL 15 ML BOTTLE OP SCH ×3 (09:58→17:59)
[2020-07-20] MEDS ORDERED: BUMETANIDE INJ 16 MG in IV NS 0.9% 16 ML IV ONE (10:00)
[2020-07-20] MEDS: POTASSIUM CHLORIDE 20 MEQ TAB.PRT.SR PO SCH ×3 (10:24→12:57)
[2020-07-20] MEDS: Magnesium 1GM/D5W 100ML PREMIX 100 ML IV SCH ×2 (10:25→11:51)
[2020-07-20 12:00] VITALS: BP 116/97
[2020-07-20 16:00] VITALS: BP 115/67
--- NOTE | 2020-07-20 17:55 | NUR ---
RN NOTES DIAMOX FOR 1530 STILL NOT GIVEN. CALLED PHARMACY 3X. SAID IT WILL BE DELIVERED. MEDICATION IS NOT IN THE PT'S CASSETTE.
[2020-07-20] MEDS: acetaZOLAMIDE 250 MG TABLET PO SCH (18:18)
--- NOTE | 2020-07-20 18:58 | NUR ---
RN CLOSING NOTES NO SIGNIFICANT CHANGES THROUGHOUT THE SHIFT. STILL REFUSING O2 VIA NC @0.5LPM. STABLE ON ROOM AIR. NO SOB OR ANY DISTRESS. NO PAIN REPORTED. ALL DUE MEDS GIVEN. NEEDS ATTENDED. SAFETY MEASURES STILL IN PLACE. WILL ENDORSE TO NIGHT RN FOR [place].
--- NOTE | 2020-07-20 19:41 | NUR ---
RN NOTE PATIENT SITTING UP IN BED, IS ALERT AND ORIENTED X3. ON ROOM AIR, NO SHORTNESS OF BREATH NOTED. IV ACCESS ON RIGHT AC #18, PATENT AND INTACT, FLUSHED ASEPTICALLY. NOTED WITH BILATERAL LOWER LEG WOUNDS, DRESSING DRY AND INTACT. BED LOCKED AND IN LOWEST POSITION. CALL LIGHT WITHIN REACH. ALL NEEDS ANTICIPATED.
[2020-07-20 20:00] VITALS: BP 91/52
[2020-07-20] MEDS: HYDROCODONE/APAP 5/325MG TABLET PO PRN (21:42)
--- NOTE | 2020-07-20 21:42 | NUR ---
PATIENT COMPLAINED OF SEVERE 8/10 SCROTUM PAIN. ADMINISTERED NORCO 5/325MG ORDERED. WILL REASSESS PATIENT.
[2020-07-20] MEDS: DOCUSATE SODIUM 100 MG CAPSULE PO SCH (21:43)
[2020-07-20] MEDS: LATANOPROST EYE DROP 0.005% 2.5 ML BOTTLE EACHEYE SCH (22:00)
--- NOTE | 2020-07-20 22:00 | NUR ---
LATANOPROST MED NOT AVAILABLE IN CASSETTE. UNABLE TO ADMINISTER. WILL F/UP WITH PHARMACY.
--- NOTE | 2020-07-20 22:42 | NUR ---
REASSESS PATIENT'S PAIN LEVEL. PATIENT STATED 0/10 PAIN. NORCO 5/325 MG EFFECTIVE.
[2020-07-21] VITALS: BP 94/54
--- NOTE | 2020-07-21 | NUR ---
LATANOPROST EYE DROPS FOUND IN DIFFERENT CASSETTE.
[2020-07-21] MEDS: ALBUTEROL FS 2.5 MG/3 ML VIAL.NEB NEB SCH ×4 (01:30→19:45)
--- NOTE | 2020-07-21 03:00 | NUR ---
pt removing and replacing bipap, pt moving around the room frequently Addendum: 07/21/20 at 3386 by CISCO NGUYEN Amended: Links added.
[2020-07-21 04:00] VITALS: BP 121/72
[2020-07-21 06:01] LABS: BASOPHILS % (AUTO) 0.9 % (0.0-2.0); EOSINOPHILS % (AUTO) 3.5 % (0.0-6.0); HEMATOCRIT 30 % (39-51); HEMOGLOBIN 9.4 g/dL (13.5-17.5); LYMPHOCYTES # (AUTO) 0.4 /CMM (0.8-4.8); LYMPHOCYTES % (AUTO) 9.7 % (20.0-44.0); MEAN CORPUSCULAR HGB CONC 32 g/dl (31.0-36.0); MEAN CORPUSCULAR VOLUME 76 fL (80-96); MONOCYTES # (AUTO) 0.5 /CMM (0.1-1.30); MONOCYTES % (AUTO) 11.9 % (2.0-12.0); NEUTROPHILS # (AUTO) 3.3 /CMM (1.8-8.9); PLATELET COUNT (AUTO) 292 /CMM (150-450); RED BLOOD CELL COUNT(AUTO) 3.91 MIL/uL (4.5-6.0); WHITE BLOOD COUNT (AUTO) 4.5 K/uL (4.3-11.0)
[2020-07-21 06:27] LABS: ALBUMIN 3.1 g/dL (3.4-5.0); BILIRUBIN,TOTAL 0.8 mg/dL (0.2-1.0); CALCIUM, SERUM 9.5 mg/dL (8.5-10.1); CREATININE 1.5 mg/dL (0.6-1.3); MAGNESIUM 2.1 mg/dL (1.8-2.4); PHOSPHORUS 4.3 mg/dL (2.5-4.9); POTASSIUM 3.9 mmol/L (3.5-5.1); TOTAL PROTEIN, SERUM 8.2 g/dL (6.4-8.2)
--- NOTE | 2020-07-21 06:44 | NUR ---
RN NOTE PATIENT IS ALERT AND ORIENTED X3. ON ROOM AIR, NO SHORTNESS OF BREATH NOTED. IV ACCESS ON RIGHT AC #18, PATENT AND INTACT. DENIES ANY PAIN AT THIS TIME. PATIENT KEPT REMOVING AND REPLACING BIPAP OVERNIGHT TO USE URINAL. BED LOCKED AND IN LOWEST POSITION. CALL LIGHT WITHIN REACH. WILL ENDORSE TO AM SHIFT.
--- NOTE | 2020-07-21 07:10 | NUR ---
RN OPENING NOTES RECEIVED PATIENT SITTING IN BED, AWAKE AND A/O X4. STILL REFUSING O2 VIA NC. NO SOB OR ANY RESPIRATORY DISTRESS NOTED. SR ON TELE MONITOR. IV ACCESS ON THE RIGHT AC, G20, INTACT AND PATENT. BLE WOUNDS NOTED, DRESSINGS DRY AND INTACT. AMBULATORY. ON CARDIAC DIET. NO PAIN REPORTED. SAFETY MEASURES IN PLACE, CALL LIGHT WITHIN REACH, BED LOCKED IN THE LOWEST POSITION, SIDE RAILS UP X3. WILL CONTINUE TO MONITOR.
--- NOTE | 2020-07-21 07:17 | NUR ---
RECEIVED CRITICAL LAB VALUE CO2 43 AT 0658. NOTIFIED HUMA ARGUETA WITH NO ORDERS RECEIVED. ENDORSED TO AM SHIFT.
[2020-07-21 08:00] VITALS: BP 110/59
[2020-07-21] MEDS: PANTOPRAZOLE 40 MG TABLET.DR PO SCH (08:45)
[2020-07-21] MEDS: ASCORBIC ACID 500 MG TABLET PO SCH (08:46)
[2020-07-21] MEDS: MULTIVITAMINS,THERAGRAN 1 UDTAB TABLET PO SCH (08:50)
[2020-07-21] MEDS: METOLAZONE 2.5 MG TABLET PO SCH ×2 (08:53→17:01)
[2020-07-21] MEDS: CALCIUM CARB 250MG /VITAMIN D 1 UDTAB PO SCH (08:53)
[2020-07-21] MEDS: CARVEDILOL 12.5 MG TABLET PO SCH (08:58)
[2020-07-21] MEDS: hydrALAZINE HCL 50 MG TABLET PO SCH ×3 (08:58→17:01)
[2020-07-21] MEDS: BENAZEPRIL HCL 10 MG TABLET PO SCH (08:59)
[2020-07-21] MEDS: ZINC SULFATE 220 MG CAPSULE PO SCH (08:59)
[2020-07-21] MEDS: NICOTINE PATCH (14MG) 14 MG PATCH.TD24 TD SCH (09:00)
[2020-07-21] MEDS: acetaZOLAMIDE 250 MG TABLET PO SCH (09:01)
[2020-07-21] MEDS: APIXABAN 5 MG TABLET PO SCH ×2 (09:04→17:04)
[2020-07-21] MEDS: POLYVINYL ALCOHOL 15 ML BOTTLE OP SCH ×3 (09:26→16:59)
[2020-07-21 12:00] VITALS: BP 92/55
--- NOTE | 2020-07-21 12:57 | NUR ---
RN NOTES BP 92/55: APRESOLINE NOT GIVEN.
[2020-07-21] MEDS: HYDROCODONE/APAP 5/325MG TABLET PO PRN (19:03)
--- NOTE | 2020-07-21 19:35 | NUR ---
RN CLOSING NOTES PATIENT SITTING IN BED ON ROOM AIR. NO SOB OR ANY RESPIRATORY DISTRESS. REPORTED 10/10 PAIN IN THE BACK. PRN NORCO GIVEN. WOUND CARE DONE. ALL DUE MEDS GIVEN. NEEDS ATTENDED. SAFETY MEASURES IN PLACE, CALL LIGHT WITHIN REACH. ENDORSED TO THE NIGHT NURSE FOR CONTINUITY OF CARE.
--- NOTE | 2020-07-21 19:40 | NUR ---
RN NOTE RECEIVED PT SITTING ON THE BED. NO DISTRESS NOTED. PT COMPLAINS OF BACK PAIN, PT GIVEN NORCO BY PREVIOUS NURSE. IV ON RAC PATENT AND INTACT, FLUSHES WELL. WOUND DRESSING ON BLE CLEAN DRY AND INTACT. WILL CONTINUE TO MONITOR. ALL SAFETY MEASURES IMPLEMENTED PER PROTOCOL. CALL LIGHT WITHIN REACH, BED LOCKED IN LOWEST POSITION.
[2020-07-21 20:00] VITALS: BP 103/72
--- NOTE | 2020-07-21 22:00 | NUR ---
RT NOTE PT REFUSING BIPAP AFTER EXPLAINING RISKS AND BENEFITS. PHI CHRISTIANSON NOTIFIED AND IS AWARE. NO DISTRESS NOTED. PT SITTING ON BED AND RESPONDING TO COMMANDS.
[2020-07-21] MEDS: DOCUSATE SODIUM 100 MG CAPSULE PO SCH (22:46)
[2020-07-21] MEDS: LATANOPROST EYE DROP 0.005% 2.5 ML BOTTLE EACHEYE SCH (22:46)
--- NOTE | 2020-07-21 23:00 | NUR ---
RN NOTE PT REFUSED BIPAP. NO SIGNS OF DISTRESS NOTED. DENIES SOB.
[2020-07-22] MEDS: ALBUTEROL FS 2.5 MG/3 ML VIAL.NEB NEB SCH ×4 (02:14→20:13)
[2020-07-22 04:00] VITALS: BP 92/50
--- NOTE | 2020-07-22 06:36 | NUR ---
RN NOTE PT SLEEPING AROUSES EASILY. WOUND TX DONE ON BILATERAL LOWER EXTREMITY, WITH LARGE DRAINAGE, NO BLEEDING NOTED. PT TOLERATED. NO SIGNS OF DISTRESS NOTED, DENIES ANY PAIN AT THIS TIME. TOLERATING ROOM AIR. NO SIGNIFICANT CHANGES NOTED. WILL ENDORSE TO NEXT SHIFT NURSE FOR [place].
[2020-07-22 07:10] LABS: BASOPHILS % (AUTO) 1.2 % (0.0-2.0); EOSINOPHILS % (AUTO) 3.9 % (0.0-6.0); HEMATOCRIT 30 % (39-51); HEMOGLOBIN 9.2 g/dL (13.5-17.5); LYMPHOCYTES # (AUTO) 0.5 /CMM (0.8-4.8); LYMPHOCYTES % (AUTO) 13.8 % (20.0-44.0); MEAN CORPUSCULAR HGB CONC 31 g/dl (31.0-36.0); MEAN CORPUSCULAR VOLUME 77 fL (80-96); MONOCYTES # (AUTO) 0.4 /CMM (0.1-1.30); MONOCYTES % (AUTO) 11.6 % (2.0-12.0); NEUTROPHILS # (AUTO) 2.7 /CMM (1.8-8.9); NEUTROPHILS % (AUTO) 69.5 % (43.0-81.0); PLATELET COUNT (AUTO) 290 /CMM (150-450); RED BLOOD CELL COUNT(AUTO) 3.87 MIL/uL (4.5-6.0); WHITE BLOOD COUNT (AUTO) 3.8 K/uL (4.3-11.0)
--- NOTE | 2020-07-22 07:47 | NUR ---
MS RN OPENING NOTES RECEIVED PATIENT SITTING IN BED, FEET ON THE FLOOR, AWAKE AND A/O X4. REFUSES O2 VIA NC. RT AT BEDSIDE GIVING BREATHING TREATMENT. NO SOB OR ANY RESPIRATORY DISTRESS NOTED. IV ACCESS TO RIGHT AC #20, INTACT AND PATENT - S/L. BLE WOUNDS NOTED, DRESSINGS DRY AND INTACT. AMBULATORY. NO PAIN REPORTED. SAFETY MEASURES IN PLACE. CALL LIGHT WITHIN REACH. WILL CONTINUE TO MONITOR.
[2020-07-22 08:05] LABS: CALCIUM, SERUM 9.1 mg/dL (8.5-10.1); CREATININE 1.4 mg/dL (0.6-1.3); MAGNESIUM 2.1 mg/dL (1.8-2.4); PHOSPHORUS 4.1 mg/dL (2.5-4.9); POTASSIUM 3.7 mmol/L (3.5-5.1)
[2020-07-22] MEDS: PANTOPRAZOLE 40 MG TABLET.DR PO SCH (08:28)
[2020-07-22] MEDS: POLYVINYL ALCOHOL 15 ML BOTTLE OP SCH ×3 (08:32→16:44)
[2020-07-22] MEDS: MULTIVITAMINS,THERAGRAN 1 UDTAB TABLET PO SCH (08:33)
[2020-07-22] MEDS: ASCORBIC ACID 500 MG TABLET PO SCH (08:33)
[2020-07-22] MEDS: CALCIUM CARB 250MG /VITAMIN D 1 UDTAB PO SCH (08:33)
[2020-07-22] MEDS: ZINC SULFATE 220 MG CAPSULE PO SCH (08:33)
[2020-07-22] MEDS: METOLAZONE 2.5 MG TABLET PO SCH ×2 (08:33→16:45)
[2020-07-22] MEDS: acetaZOLAMIDE 250 MG TABLET PO SCH (08:34)
[2020-07-22] MEDS: APIXABAN 5 MG TABLET PO SCH ×2 (08:35→16:49)
[2020-07-22] MEDS: hydrALAZINE HCL 50 MG TABLET PO SCH ×3 (08:42→16:45)
[2020-07-22] MEDS: NICOTINE PATCH (14MG) 14 MG PATCH.TD24 TD SCH (08:43)
[2020-07-22] MEDS: BENAZEPRIL HCL 10 MG TABLET PO SCH (08:43)
[2020-07-22] MEDS: CARVEDILOL 12.5 MG TABLET PO SCH (08:43)
--- NOTE | 2020-07-22 08:43 | NUR ---
MS RN NOTE BP DECREASED - DID NOT GIVE BP MEDICATION. 112/69
[2020-07-22] MEDS: HYDROCODONE/APAP 5/325MG TABLET PO PRN ×2 (08:59→20:33)
[2020-07-22 11:46] LABS: ABG BASE EXCESS 14.6 mmol/L; ABG OXYGEN SATURATION 97.7 % (92.0-98.5); ABG PCO2 69.3 mmHg (35.0-45.0); ABG PH 7.399 (7.350-7.450); AaDO2 12.9 mmHg; COHb 1.1 % (0.5-1.5); MetHb 0.1 % (0.0-1.5); O2Hb 96.5 % (94.0-97.0); SITE, ABG Right Radial; VENT MODE, BG N/C
[2020-07-22 12:13] VITALS: BP 136/79
--- NOTE | 2020-07-22 18:30 | NUR ---
MS RN CLOSING NOTES PATIENT CURRENTLY SITTING IN BED, DOZES OFF TO SLEEP AND DOESN'T WANT TO LAY DOWN IN BED. A/O X4. ON ROOM AIR - TOLERATING WELL. REFUSES NASAL CANNULA, BUT SATS AT 96%. NO SOB OR ANY RESPIRATORY DISTRESS. S/P WOUND DEBRIDEMENT OF LOWER EXTREMITIES BY MARIA G. WOUND CARE AND DRESSINGS DONE AND KEPT CLEAN AND DRY. IV ACCESS TO RIGHT AC #20 - INTACT AND PATENT - S/L. SAFETY MEASURES IN PLACE. CALL LIGHT WITHIN REACH. WILL ENDORSE TO RUBBER THREAD SPOOLER NURSE FOR [place].
--- NOTE | 2020-07-22 19:30 | NUR ---
RN NOTE RECEIVED PT SITTING ON THE BED, NO RESP DISTRESS NOTED. PT COMPLAINS OF BACK PAIN, OFFERED NORCO, PT REFUSED FOR NOW. PER PT PAIN STILL MANAGEABLE. IV ON RAC PATENT AND INTACT, FLUSHES WELL. BLE WOUND DRESSING INTACT. WILL CONTINUE TO MONITOR. ALL SAFETY MEASURES IMPLEMENTED PER PROTOCOL. CALL LIGHT WITHIN REACH, BED LOCKED IN LOWEST POSITION.
[2020-07-22 20:00] VITALS: BP 110/68
[2020-07-22] MEDS: LATANOPROST EYE DROP 0.005% 2.5 ML BOTTLE EACHEYE SCH (21:34)
[2020-07-22] MEDS: DOCUSATE SODIUM 100 MG CAPSULE PO SCH (21:34)
--- NOTE | 2020-07-22 23:00 | NUR ---
PT REFUSED NOCTURNAL BIPAP , PHI CHRISTIANSON NOTIFIED. NO RESPIRATORY DISTRESS NOTED , WILL CONTINUE TO MONITOR T/O SHIFT.
--- NOTE | 2020-07-23 01:00 | NUR ---
RN NOTE PT SITTING ON THE BED AND FALLING ASLEEP. ADVICE PT TO PT LAY DOWN ON BED FOR FALL PRECAUTION. PT VERBALIZES HE'S OK AND USED TO IT. WILL CONTINUE TO MONITOR.
[2020-07-23] MEDS: ALBUTEROL FS 2.5 MG/3 ML VIAL.NEB NEB SCH ×4 (01:02→19:30)
[2020-07-23 04:00] VITALS: BP 113/65
[2020-07-23 06:06] LABS: EOSINOPHILS % (AUTO) 3.3 % (0.0-6.0); HEMATOCRIT 29 % (39-51); HEMOGLOBIN 8.9 g/dL (13.5-17.5); LYMPHOCYTES # (AUTO) 0.5 /CMM (0.8-4.8); LYMPHOCYTES % (AUTO) 13.9 % (20.0-44.0); MEAN CORPUSCULAR HGB CONC 31 g/dl (31.0-36.0); MEAN CORPUSCULAR VOLUME 77 fL (80-96); MONOCYTES # (AUTO) 0.5 /CMM (0.1-1.30); MONOCYTES % (AUTO) 13.7 % (2.0-12.0); NEUTROPHILS # (AUTO) 2.5 /CMM (1.8-8.9); NEUTROPHILS % (AUTO) 68.1 % (43.0-81.0); PLATELET COUNT (AUTO) 270 /CMM (150-450); RED BLOOD CELL COUNT(AUTO) 3.72 MIL/uL (4.5-6.0); WHITE BLOOD COUNT (AUTO) 3.7 K/uL (4.3-11.0)
[2020-07-23 06:19] LABS: CALCIUM, SERUM 9.3 mg/dL (8.5-10.1); CREATININE 1.4 mg/dL (0.6-1.3); MAGNESIUM 2.3 mg/dL (1.8-2.4); PHOSPHORUS 4.2 mg/dL (2.5-4.9); POTASSIUM 3.6 mmol/L (3.5-5.1)
--- NOTE | 2020-07-23 06:33 | NUR ---
RN NOTE PT ABLE TO MAKE NEEDS KNOWN. REFUSED BIPAP AT NIGHT, WAS PUT ON 2L O2. TOLERATING WELL. NO SIGNS OF RESP DISTRESS NOTED. PT DENIES SOB. CHANGED WOUND DRESSING TWICE DUE TO DRESSING SOAKED WITH DRAINAGE. DENIES ANY PAIN. PT LOSS ABOUT 25LBS, PT ON DIURETICS AND HAD GONE TO RESTROOM ABOUT 7 TIMES. PT REFUSED TO HAVE LINEN CHANGED, WANTS TO DO IT IN AM. ALL NEEDS ATTENDED. ALL SAFETY MEASURES MAINTAINED. WILL ENDORSE TO NEXT SHIFT NURSE FOR [place].
--- NOTE | 2020-07-23 07:30 | NUR ---
RN OPENING NOTE PT RESTING IN BED ASLEEP. ASROUSES TO NAME. A/O X4 AND NIUEAN SPEAKING. ABLE TO MAKE NEEDS KNOWN. NO COMPLAINT OF PAIN OR NAUSEA. CURRENTLY ON 2L NC WITH NO SOB OR RESPIRATORY DISTRESS PRESENT. NO EDEMA PRESENT. BLE SKIN LESIONS PRESENT AND WOUND CARE APPLIED. IV PRESENT ON R AC 20G AND FLUSHES WELL. SAFETY MEASURES IN PLACE. SIDE RAILS RAISED. BED LOWERED. CALL LIGHTI WITHIN REACH. WILL CONTINUE TO MONITOR.
[2020-07-23 08:00] VITALS: BP 112/68
[2020-07-23] MEDS: PANTOPRAZOLE 40 MG TABLET.DR PO SCH (08:19)
[2020-07-23] MEDS: CALCIUM CARB 250MG /VITAMIN D 1 UDTAB PO SCH (08:20)
[2020-07-23] MEDS: ASCORBIC ACID 500 MG TABLET PO SCH (08:20)
[2020-07-23] MEDS: METOLAZONE 2.5 MG TABLET PO SCH ×2 (08:21→17:57)
[2020-07-23] MEDS: MULTIVITAMINS,THERAGRAN 1 UDTAB TABLET PO SCH (08:21)
[2020-07-23] MEDS: ZINC SULFATE 220 MG CAPSULE PO SCH (08:21)
[2020-07-23] MEDS: NICOTINE PATCH (14MG) 14 MG PATCH.TD24 TD SCH (08:21)
[2020-07-23] MEDS: hydrALAZINE HCL 50 MG TABLET PO SCH ×3 (08:23→17:57)
[2020-07-23] MEDS: BENAZEPRIL HCL 10 MG TABLET PO SCH (08:23)
[2020-07-23] MEDS: CARVEDILOL 12.5 MG TABLET PO SCH (08:23)
[2020-07-23] MEDS: APIXABAN 5 MG TABLET PO SCH ×2 (08:25→17:58)
[2020-07-23] MEDS: POLYVINYL ALCOHOL 15 ML BOTTLE OP SCH ×3 (09:37→17:58)
[2020-07-23 20:00] VITALS: BP 115/70
--- NOTE | 2020-07-23 20:00 | NUR ---
RN NOTE RECEIVED PT SITTING ON THE BED, NO RESP DISTRESS NOTED. PT COMPLAINS OF BACK PAIN, NORCO GIVEN ORDERED. IV ON RAC PATENT AND INTACT, FLUSHES WELL. BLE WOUND DRESSING INTACT. WILL CONTINUE TO MONITOR. ALL SAFETY MEASURES IMPLEMENTED PER PROTOCOL. CALL LIGHT WITHIN REACH, BED LOCKED IN LOWEST POSITION.
[2020-07-23] MEDS: HYDROCODONE/APAP 5/325MG TABLET PO PRN (20:16)
[2020-07-23] MEDS: DOCUSATE SODIUM 100 MG CAPSULE PO SCH (21:24)
[2020-07-23] MEDS: LATANOPROST EYE DROP 0.005% 2.5 ML BOTTLE EACHEYE SCH (21:24)
--- NOTE | 2020-07-23 22:00 | NUR ---
MS RN NOTES RT AT BEDSIDE OFFERED NOC BIPAP, PTS REFUSED ,EXPLAIN R/B WILL CONTINUE TO MONITOR
[2020-07-24] MEDS: ALBUTEROL FS 2.5 MG/3 ML VIAL.NEB NEB SCH ×4 (01:30→20:45)
[2020-07-24 04:00] VITALS: BP 132/81
[2020-07-24 06:06] LABS: BASOPHILS % (AUTO) 1.3 % (0.0-2.0); EOSINOPHILS % (AUTO) 3.1 % (0.0-6.0); HEMATOCRIT 30 % (39-51); HEMOGLOBIN 9.3 g/dL (13.5-17.5); LYMPHOCYTES # (AUTO) 0.4 /CMM (0.8-4.8); LYMPHOCYTES % (AUTO) 13.1 % (20.0-44.0); MEAN CORPUSCULAR HGB CONC 32 g/dl (31.0-36.0); MEAN CORPUSCULAR VOLUME 77 fL (80-96); MONOCYTES # (AUTO) 0.4 /CMM (0.1-1.30); MONOCYTES % (AUTO) 11.6 % (2.0-12.0); NEUTROPHILS # (AUTO) 2.3 /CMM (1.8-8.9); NEUTROPHILS % (AUTO) 70.9 % (43.0-81.0); PLATELET COUNT (AUTO) 265 /CMM (150-450); RED BLOOD CELL COUNT(AUTO) 3.86 MIL/uL (4.5-6.0); WHITE BLOOD COUNT (AUTO) 3.2 K/uL (4.3-11.0)
[2020-07-24 06:13] LABS: CALCIUM, SERUM 9.3 mg/dL (8.5-10.1); CREATININE 1.3 mg/dL (0.6-1.3); MAGNESIUM 2.3 mg/dL (1.8-2.4); PHOSPHORUS 4.1 mg/dL (2.5-4.9); POTASSIUM 3.8 mmol/L (3.5-5.1)
--- NOTE | 2020-07-24 06:46 | NUR ---
ms rn notes pts remains stable no aurelio the whole shift will endorse to rn day shift for continuity of care.
--- NOTE | 2020-07-24 06:46 | NUR ---
teleprinter installer notes pts remains stable but with low grage fever tylenol given as ordered .will endorse to rn day shift for continuity of care.
--- NOTE | 2020-07-24 07:30 | NUR ---
RN OPENING NOTE PT A/Ox4 SEATED UPRIGHT, BREATHING RA WITH NO SIGNS OF RESP DISTRESS OR SOB, BREATHING EVEN AND UNLABORED, SPO2 92%. PT DENIES PAIN. RAC #20 FLUSHED, PATENT AND INTACT WITH NO S/S OF INFILTRATION/INFECTION, SL. PT BLE SKIN LESIONS WRAPPED IN XEROFORM, ABD PAD AND KERLIX, SILVESTRE CDI. PT IS AMBULATORY WITH WALKER, STEADY GAIT. ALL PT SAFETY PRECAUTION IN PLACE, CALL LIGHT WITHIN REACH, BED LOCKED AND IN LOWEST POSITION, SR UP x2. WILL CONT TO MONITOR Addendum: 07/24/20 at 1348 by CHAKA CALDERON RN PT HAS SCROTAL EDEMA AND BLE EDEMA
[2020-07-24 08:00] VITALS: BP 128/74
[2020-07-24] MEDS: ZINC SULFATE 220 MG CAPSULE PO SCH (08:35)
[2020-07-24] MEDS: ASCORBIC ACID 500 MG TABLET PO SCH (08:35)
[2020-07-24] MEDS: PANTOPRAZOLE 40 MG TABLET.DR PO SCH (08:35)
[2020-07-24] MEDS: NICOTINE PATCH (14MG) 14 MG PATCH.TD24 TD SCH (08:35)
[2020-07-24] MEDS: CALCIUM CARB 250MG /VITAMIN D 1 UDTAB PO SCH (08:36)
[2020-07-24] MEDS: MULTIVITAMINS,THERAGRAN 1 UDTAB TABLET PO SCH (08:36)
[2020-07-24] MEDS: hydrALAZINE HCL 50 MG TABLET PO SCH ×3 (08:36→17:35)
[2020-07-24] MEDS: BENAZEPRIL HCL 10 MG TABLET PO SCH (08:37)
[2020-07-24] MEDS: APIXABAN 5 MG TABLET PO SCH ×2 (08:38→17:37)
[2020-07-24] MEDS: LATANOPROST EYE DROP 0.005% 2.5 ML BOTTLE EACHEYE SCH (08:40)
[2020-07-24] MEDS: POLYVINYL ALCOHOL 15 ML BOTTLE OP SCH ×3 (09:00→17:38)
[2020-07-24] MEDS: METOLAZONE 2.5 MG TABLET PO SCH ×2 (10:02→17:35)
[2020-07-24] MEDS: CARVEDILOL 12.5 MG TABLET PO SCH (10:03)
[2020-07-24] MEDS: FUROSEMIDE 100 MG/10 ML VIAL IV SCH ×3 (10:40→17:34)
[2020-07-24] MEDS: POTASSIUM CHLORIDE 20 MEQ TAB.PRT.SR PO SCH ×3 (10:40→13:49)
[2020-07-24] MEDS: HYDROCODONE/APAP 5/325MG TABLET PO PRN ×2 (12:42→21:31)
[2020-07-24 16:00] VITALS: BP 123/81
--- NOTE | 2020-07-24 19:00 | NUR ---
RN CLOSING NOTE PT IN STABLE CONDITION. PT TOLERATED LASIX 80MG x3 WELL. NO SIGN OF RESP DISTRESS OR SOB. ALL PT SAFETY PRECAUTIONS IN PLACE, [place]ON ENDORSED TO SOLE RUFFER RN
--- NOTE | 2020-07-24 19:35 | NUR ---
MS RN NOTES PT RECEIVED A/Ox4 SEATED UPRIGHT AT BEDSIDE, ON ROOM AIR TOLERATING WELL. WITH NO SIGNS OF RESPIRATORY DISTRESS, BREATHING EVEN AND UNLABORED, SPO2 92%. PT DENIES PAIN AT THIS TIME. RAC #20 IV ACCESS NOTED FLUSHING, PATENT AND INTACT WITH NO S/S OF INFILTRATION/INFECTION, SL. PT BLE SKIN LESIONS WRAPPED IN XEROFORM, ABD PAD AND KERLIX NOTED INTACT PT HAS BLE LOWER EXTREMITY EDEMA AND SCROTAL EDEMA. ALL NURSING NEEDS MET AT THIS TIME.PT IS AMBULATORY WITH WALKER, STEADY GAIT. ALL PT SAFETY PRECAUTION FOLLOWED, CALL LIGHT WITHIN REACH, BED LOCKED AND IN LOWEST POSITION, SR UP x2. WILL CONTINUE TO MONITOR
[2020-07-24 20:00] VITALS: BP 96/60
[2020-07-24] MEDS: DOCUSATE SODIUM 100 MG CAPSULE PO SCH (21:31)
[2020-07-25] MEDS: ALBUTEROL FS 2.5 MG/3 ML VIAL.NEB NEB SCH ×3 (01:30→13:30)
[2020-07-25 04:27] VITALS: BP 129/79
[2020-07-25 05:59] LABS: BASOPHILS % (AUTO) 1.4 % (0.0-2.0); EOSINOPHILS % (AUTO) 4.2 % (0.0-6.0); HEMATOCRIT 30 % (39-51); HEMOGLOBIN 9.3 g/dL (13.5-17.5); LYMPHOCYTES # (AUTO) 0.5 /CMM (0.8-4.8); LYMPHOCYTES % (AUTO) 14.5 % (20.0-44.0); MEAN CORPUSCULAR HGB CONC 31 g/dl (31.0-36.0); MEAN CORPUSCULAR VOLUME 77 fL (80-96); MONOCYTES # (AUTO) 0.4 /CMM (0.1-1.30); MONOCYTES % (AUTO) 12.4 % (2.0-12.0); NEUTROPHILS # (AUTO) 2.3 /CMM (1.8-8.9); NEUTROPHILS % (AUTO) 67.5 % (43.0-81.0); PLATELET COUNT (AUTO) 264 /CMM (150-450); RED BLOOD CELL COUNT(AUTO) 3.89 MIL/uL (4.5-6.0); WHITE BLOOD COUNT (AUTO) 3.4 K/uL (4.3-11.0)
[2020-07-25 06:52] LABS: ALBUMIN 3.3 g/dL (3.4-5.0); BILIRUBIN,TOTAL 0.7 mg/dL (0.2-1.0); CALCIUM, SERUM 9.3 mg/dL (8.5-10.1); CREATININE 1.4 mg/dL (0.6-1.3); MAGNESIUM 2.2 mg/dL (1.8-2.4); PHOSPHORUS 3.9 mg/dL (2.5-4.9); POTASSIUM 3.6 mmol/L (3.5-5.1); TOTAL PROTEIN, SERUM 8.6 g/dL (6.4-8.2)
--- NOTE | 2020-07-25 07:02 | NUR ---
MS RN NOTES PT A/Ox4 SEATED UPRIGHT AT BEDSIDE, ON ROOM AIR TOLERATING WELL. WITH NO SIGNS OF RESPIRATORY DISTRESS, BREATHING EVEN AND UNLABORED, SPO2 92%. PT DENIES PAIN AT THIS TIME. RAC #20 IV ACCESS NOTED FLUSHING, PATENT AND INTACT WITH NO S/S OF INFILTRATION/INFECTION, SL. WOUND TREATMENT PROVIDED.. ALL NURSING NEEDS MET AT THIS TIME.. ALL PT SAFETY PRECAUTION FOLLOWED, CALL LIGHT WITHIN REACH, BED LOCKED AND IN LOWEST POSITION, SR UP x2. WILL ENDORSE CARE TO DAY SHIFT NURSE.
--- NOTE | 2020-07-25 07:30 | NUR ---
MS RN OPENING NOTE RECEIVED PATIENT SITTING IN THE BED HAVING HIS BREAKFAST. A/O X4. ON ROOM AIR, SATURATING WELL AT 97%. NO SOB NOTED. IN NO APPARENT DISTRESS. DENIES ANY PAIN OR DISCOMFORT AT THIS TIME. IV ACCESS ON R AC #20 G, INTACT. SAFETY MEASURES MAINTAINED. BED IN LOWEST POSITION, BRAKES LOCKED. SIDE RAILS UP X2. CALL LIGHT WITHIN REACH. WILL CONTINUE PLAN OF CARE.
[2020-07-25] MEDS: BENAZEPRIL HCL 10 MG TABLET PO SCH (08:07)
[2020-07-25] MEDS: CALCIUM CARB 250MG /VITAMIN D 1 UDTAB PO SCH (08:08)
[2020-07-25] MEDS: PANTOPRAZOLE 40 MG TABLET.DR PO SCH (08:08)
[2020-07-25] MEDS: CARVEDILOL 12.5 MG TABLET PO SCH (08:08)
[2020-07-25] MEDS: MULTIVITAMINS,THERAGRAN 1 UDTAB TABLET PO SCH (08:08)
[2020-07-25] MEDS: ASCORBIC ACID 500 MG TABLET PO SCH (08:09)
[2020-07-25] MEDS: ZINC SULFATE 220 MG CAPSULE PO SCH (08:09)
[2020-07-25] MEDS: hydrALAZINE HCL 50 MG TABLET PO SCH ×2 (08:09→12:13)
[2020-07-25] MEDS: METOLAZONE 2.5 MG TABLET PO SCH (08:11)
[2020-07-25] MEDS: APIXABAN 5 MG TABLET PO SCH (08:11)
[2020-07-25] MEDS: NICOTINE PATCH (14MG) 14 MG PATCH.TD24 TD SCH (08:12)
[2020-07-25] MEDS: HYDROCODONE/APAP 5/325MG TABLET PO PRN (08:12)
[2020-07-25] MEDS ORDERED: POTA20TA83 PO (09:33)
[2020-07-25] MEDS ORDERED: ALBUT2 NEB (09:33)
[2020-07-25] MEDS ORDERED: FURO80TA3 PO (09:33)
[2020-07-25] MEDS ORDERED: CARV12.52 PO (09:33)
[2020-07-25] MEDS ORDERED: POTASSIUM CHLORIDE 20 MEQ TAB.PRT.SR PO SCH (10:00)
[2020-07-25] MEDS ORDERED: FUROSEMIDE 40 MG TABLET PO SCH (10:00)
[2020-07-25] MEDS: POLYVINYL ALCOHOL 15 ML BOTTLE OP SCH ×2 (10:40→12:14)
[2020-07-25 12:00] VITALS: BP 123/80
[2020-07-25 12:13] VITALS: BP 128/30
--- NOTE | 2020-07-25 15:25 | NUR ---
MS RN NOTE PATIENT DISCHARGED. G[facility] RE[facility]. PT WAS PICKED UP BY 2 EMT'S VIA [facility]. [facility] TEACHING AND DISCHARGE INSTRUCTIONS GIVEN. PT VERBALIZED UNDERSTANDING. WOUND TREATMENT ORDERED. REMOVED IV LINE AND ID WRISTBAND. BELONGINGS HANDED TO THE PT. BP 123/80 IN 95 RR 20 T 98.6 SA02 97%
[2020-07-26] MEDS ORDERED: CARVEDILOL 12.5 MG TABLET PO SCH (09:00)
== END 2020-07-25 15:24 | DRG 264 ==
LOC: ER 18:28 → MEDSG1 20:42 → TELE1 21:13 → MEDSG1 07-21 10:06
PROVIDERS: ADMIT Nurse Practitioner Acute Care; ATTEND Registered Nurse
PROC: 0JBN0ZZ Excision of Right Lower Leg Subcutaneous Tissue and Fascia, Open Approach (ICD-10-PCS; principal; 2020-07-22)
DX: I11.0 Hypertensive heart disease with heart failure (principal); N17.0 Acute kidney failure with tubular necrosis; E66.2 Morbid (severe) obesity with alveolar hypoventilation; J96.12 Chronic respiratory failure with hypercapnia; E44.1 Mild protein-calorie malnutrition; J96.11 Chronic respiratory failure with hypoxia; L97.819 Non-pressure chronic ulcer of other part of right lower leg with unspecified severity; L97.829 Non-pressure chronic ulcer of other part of left lower leg with unspecified severity; I50.33 Acute on chronic diastolic (congestive) heart failure; N50.89 Other specified disorders of the male genital organs; Z68.38 Body mass index [BMI] 38.0-38.9, adult; I48.91 Unspecified atrial fibrillation; E78.5 Hyperlipidemia, unspecified; N18.9 Chronic kidney disease, unspecified; Z79.51 Long term (current) use of inhaled steroids; Z79.899 Other long term (current) drug therapy; F17.200 Nicotine dependence, unspecified, uncomplicated; I27.20 Pulmonary hypertension, unspecified; J44.9 Chronic obstructive pulmonary disease, unspecified; D50.9 Iron deficiency anemia, unspecified; I87.2 Venous insufficiency (chronic) (peripheral); I87.8 Other specified disorders of veins; Z91.19 Patient's noncompliance with other medical treatment and regimen; Z20.822 Contact with and (suspected) exposure to COVID-19; W34.00XS Accidental discharge from unspecified firearms or gun, sequela; S81.801A Unspecified open wound, right lower leg, initial encounter; X58.XXXA Exposure to other specified factors, initial encounter; Y92.9 Unspecified place or not applicable; F41.9 Anxiety disorder, unspecified; I83.018 Varicose veins of right lower extremity with ulcer other part of lower leg; I83.028 Varicose veins of left lower extremity with ulcer other part of lower leg
CPT/HCPCS: 36415; 36600; 71045-TC; 76770-TC; 76870-TC; 80048-TC; 80053-TC; 82728-TC; 82803-TC; 83540-TC; 83735-TC; 83880; 84100-TC; 84484-TC; 85025-TC; 87081-TC; 93970-TC; 94799-TC; 97116-TC; 97530-TC; A4217; A6253; A6403; G0378; J1940; J3475; J3490; J7050; U0003